=== PATIENT | female | born 1935 | race Caucasian/White ===

== ENCOUNTER 2025-03-19 22:47 | Inpatient (IN) | payer MEDICARE, MEDICAID ==
[~2025-03-19] VITALS: Ht 157.5 cm; Wt 60.4 kg
[2025-03-19 23:13] VITALS: O2SAT 98
[2025-03-20 00:26] LABS: BASOPHILS % 0.4 % (0.0-2.0); EOSINOPHILS % 0.3 % (0.0-5.0); HEMATOCRIT. 34.5 % (36.0-48.0); HEMOGLOBIN. 11.6 g/dL (12.0-16.0); LYMPHOCYTES % 21.4 % (20.0-50.0); MEAN PLATELET VOLUME 7.5 fl (7.4-10.4); MONOCYTES % 4.9 % (2.0-8.0); NEUTROPHILS % 73.0 % (40.0-76.0); PLATELET 284 x1000/uL (130-400); RED BLOOD CELL COUNT 3.89 mill/uL (4.2-5.4); RED CELL DISTRIBUTION WIDTH 13.8 % (11.6-14.6)
[2025-03-20] MEDS: DEXT 5%/0.45% NACL 1000ML 1,000 ML IV ONE (00:37)
[2025-03-20 00:42] LABS: CREATININE 1.6 mg/dL (0.6-1.0); UREA NITROGEN BLOOD 37 mg/dL (9-23)
[2025-03-20 00:43] LABS: TROPONIN I HIGH SENSITIVITY 5 ng/L (3.0-34)
[2025-03-20] MEDS ORDERED: MAGNESIUM/ALUMINUM HYDROXIDE/SIMETHICONE 30ML UDC PO PRN (01:15)
[2025-03-20] MEDS ORDERED: ACETAMINOPHEN 325MG TABLET PO PRN (01:15)
[2025-03-20] MEDS ORDERED: DEXTROSE 50% WATER 50ML SYRINGE IV PRN (01:15)
[2025-03-20] MEDS ORDERED: ZOLPIDEM TARTRATE 5MG TABLET PO PRN (01:15)
[2025-03-20] MEDS ORDERED: ONDANSETRON HCL 4MG/2ML INJ IV PRN (01:15)
[2025-03-20] MEDS ORDERED: HYDROCODONE/ACETAMINOPHEN 5/325MG TABLET PO PRN (01:15)
[2025-03-20] MEDS ORDERED: NALOXONE HCL 0.4MG/ML VIAL IV PRN (01:30)
[2025-03-20] MEDS: LABETALOL 5MG/ML 4ML INJ IV NR (01:45)
[2025-03-20 02:24] LABS: CLARITY URINE CLEAR (CLEAR); COLOR URINE YELLOW (YELLOW); GLUCOSE URINE TRACE (NEGATIVE); KETONES URINE NEGATIVE (NEGATIVE); LEUKOCYTE ESTERASE URINE NEGATIVE (NEGATIVE); NITRITE URINE NEGATIVE (NEGATIVE); OCCULT BLOOD URINE NEGATIVE (NEGATIVE); PH URINE 7.0 (4.5-8.0); PROTEIN URINE 2+ (NEGATIVE); SPECIFIC GRAVITY URINE 1.008 (1.005-1.030); UROBILINOGEN URINE 0.2 E.U./dL (0.2-1.0)
[2025-03-20 03:17] LABS: *AMPHETAMINES SCREEN URINE NEGATIVE (NEGATIVE); *BENZODIAZEPINES SCREEN URINE NEGATIVE (NEGATIVE)
[2025-03-20 03:18] LABS: *BARBITURATES SCREEN URINE NEGATIVE (NEGATIVE); *COCAINE SCREEN URINE NEGATIVE (NEGATIVE); CANNABINOID URINE SCREEN NEGATIVE (NEGATIVE); ECSTASY MDMA SCREEN URINE NEGATIVE (NEGATIVE); METHADONE URINE SCREEN NEGATIVE (NEGATIVE); OPIATES URINE SCREEN NEGATIVE (NEGATIVE); PHENCYCLIDINE URINE SCREEN NEGATIVE (NEGATIVE)
[2025-03-20] MEDS: DEXT 5%/0.45% NACL 1000ML 1,000 ML IV SCH (03:30)
[2025-03-20] MEDS: CLONIDINE 0.1MG TABLET PO PRN (03:33)
[2025-03-20 04:08] VITALS: BP 203/67; PULSE 69; RESP 17; RESP 19; TEMP 36.7; O2SAT 96
[2025-03-20 04:30] VITALS: BP 203/67; PULSE 69; RESP 17; TEMP 36.696
[2025-03-20 04:55] LABS: BACTERIA URINE NONE SEEN; RBC URINE NONE SEEN /hpf (0-2); SQUAMOUS EPITHELIAL CELL URINE NONE SEEN /lpf (RARE/1+); WBC URINE 0-2 /hpf (0-2)
[2025-03-20 05:09] LABS: TROPONIN I HIGH SENSITIVITY 5 ng/L (3.0-34)
[2025-03-20] MEDS: BLOOD SUGAR DIAGNOSTIC STRIP TEST SCH (05:59)
[2025-03-20] MEDS: INSULIN LISPRO 100 UNITS/ML SUBCUT SCH (07:50)
[2025-03-20 08:00] VITALS: BP 145/55; PULSE 77; RESP 16; TEMP 36.3; O2SAT 99
[2025-03-20] MEDS: PANTOPRAZOLE SODIUM 40 MG/VIAL IV SCH (09:50)
[2025-03-20] MEDS: ENOXAPARIN 40MG/0.4ML SYR SUBCUT SCH (09:51)
[2025-03-20 12:00] VITALS: BP 162/59; PULSE 82; RESP 17; TEMP 36.3; O2SAT 98
[2025-03-20 16:00] VITALS: BP 132/54; PULSE 64; RESP 16; TEMP 36.3; O2SAT 98
[2025-03-20 20:00] VITALS: BP 154/66; PULSE 75; RESP 17; TEMP 36.4; O2SAT 98
[2025-03-21] VITALS: BP 113/59; PULSE 67; RESP 19; TEMP 36.2; O2SAT 98
[2025-03-21 04:00] VITALS: BP 174/62; PULSE 70; RESP 19; TEMP 36.2; O2SAT 95
[2025-03-21 06:32] LABS: BASOPHILS % 0.4 % (0.0-2.0); EOSINOPHILS % 2.5 % (0.0-5.0); HEMATOCRIT. 31.2 % (36.0-48.0); HEMOGLOBIN. 10.5 g/dL (12.0-16.0); LYMPHOCYTES % 36.4 % (20.0-50.0); MEAN PLATELET VOLUME 7.7 fl (7.4-10.4); MONOCYTES % 7.3 % (2.0-8.0); NEUTROPHILS % 53.4 % (40.0-76.0); PLATELET 252 x1000/uL (130-400); RED BLOOD CELL COUNT 3.50 mill/uL (4.2-5.4); RED CELL DISTRIBUTION WIDTH 13.8 % (11.6-14.6)
[2025-03-21 06:43] LABS: CREATININE 1.6 mg/dL (0.6-1.0); UREA NITROGEN BLOOD 32.0 mg/dL (9-23)
[2025-03-21 08:00] VITALS: BP 136/52; PULSE 85; RESP 18; TEMP 36.1; O2SAT 98
[2025-03-21] MEDS: AMLODIPINE 5MG TABLET PO SCH (08:56)
[2025-03-21] MEDS: ENOXAPARIN 30MG/0.3ML SYR SUBCUT SCH (08:56)
[2025-03-21] MEDS: LISINOPRIL 10MG TABLET PO SCH (08:57)
[2025-03-21 12:00] VITALS: BP 137/47; PULSE 68; RESP 18; TEMP 36.4; O2SAT 99
[2025-03-21 16:00] VITALS: BP 120/53; PULSE 70; RESP 20; TEMP 36.3; O2SAT 97
[2025-03-21 20:00] VITALS: BP 124/52; PULSE 72; RESP 19; TEMP 36.4; O2SAT 97
[2025-03-22] VITALS (7 sets, daily range): BP systolic 133–187; BP diastolic 55–72; PULSE 74–88; RESP 16–20; TEMP 36.2–36.6; O2SAT 97–99
[2025-03-22 09:11] LABS: BASOPHILS % 0.6 % (0.0-2.0); EOSINOPHILS % 1.9 % (0.0-5.0); HEMATOCRIT. 33.5 % (36.0-48.0); HEMOGLOBIN. 11.4 g/dL (12.0-16.0); LYMPHOCYTES % 29.8 % (20.0-50.0); MEAN PLATELET VOLUME 7.7 fl (7.4-10.4); MONOCYTES % 6.6 % (2.0-8.0); NEUTROPHILS % 61.1 % (40.0-76.0); PLATELET 285 x1000/uL (130-400); RED BLOOD CELL COUNT 3.78 mill/uL (4.2-5.4); RED CELL DISTRIBUTION WIDTH 13.6 % (11.6-14.6)
[2025-03-22 09:43] LABS: CREATININE 1.6 mg/dL (0.6-1.0); UREA NITROGEN BLOOD 32.0 mg/dL (9-23)
[2025-03-22] MEDS ORDERED: AMLO5TAB88 PO (16:47)
== END 2025-03-22 19:10 | disposition home health service (06) | DRG 637 ==
LOC: ER 22:47 → 6WST 03-20 01:07 → EDBEDREQ 03-20 01:19 → EDBEDREQTM 03-20 01:19 → ENRESERV 03-20 03:11
PROVIDERS: ADMIT Internal Medicine; ATTEND Internal Medicine
DX: E11.649 Type 2 diabetes mellitus with hypoglycemia without coma (principal); G92.8 Other toxic encephalopathy; I10 Essential (primary) hypertension; N17.9 Acute kidney failure, unspecified; I16.0 Hypertensive urgency; E78.5 Hyperlipidemia, unspecified; Z79.899 Other long term (current) drug therapy
CPT/HCPCS: 36415; 71045; 80048; 80305; 81003; 82962; 84443; 84484; 85025; 93970; 97162; 99285; J1650; J1815; J2470; J3490

== ENCOUNTER 2025-03-23 21:53 | Inpatient (IN) | payer MEDICARE, OTHER ==
[~2025-03-23] VITALS: Ht 167.6 cm; Wt 61.2 kg
[~2025-03-23 21:53] MED LIST: AMLO5TAB88 PO
[2025-03-23 22:19] VITALS: O2SAT 98
[2025-03-23] MEDS: SODIUM CHLORIDE 0.9% 1,000 ML IV ONE (23:00)
[2025-03-23] MEDS: MORPHINE SULFATE 4 MG/ML INJ (FOR IV/IM USE) IV ONE (23:00)
[2025-03-23] MEDS: ONDANSETRON HCL 4MG/2ML INJ IV ONE (23:00)
[2025-03-23 23:47] LABS: HEMATOCRIT. 33.2 % (36.0-48.0); HEMOGLOBIN. 11.4 g/dL (12.0-16.0); MEAN PLATELET VOLUME 7.4 fl (7.4-10.4); PLATELET 272 x1000/uL (130-400); RED BLOOD CELL COUNT 3.74 mill/uL (4.2-5.4); RED CELL DISTRIBUTION WIDTH 13.5 % (11.6-14.6)
[2025-03-23 23:58] LABS: INR 1.0
[2025-03-24 00:02] LABS: CREATININE 1.9 mg/dL (0.6-1.0); UREA NITROGEN BLOOD 41 mg/dL (9-23)
[2025-03-24 00:04] LABS: ASPARTATE AMINOTRANSFERASE 492 IU/L (<34); BILIRUBIN DIRECT 1.1 mg/dL (<=3.0); BILIRUBIN TOTAL 1.7 mg/dL (0.1-1.0); PROTEIN TOTAL 7.4 g/dL (6.0-8.3); TROPONIN I HIGH SENSITIVITY 9 ng/L (3.0-34)
[2025-03-24] MEDS: CEFTRIAXONE 1GM/50ML 50 ML IV ONE (03:46)
[2025-03-24 06:03] LABS: BAND% 13.0 % (1.0-6.0); LYMPHOCYTES % MANUAL 2.0 % (20.0-60.0); NEUTROPHILS % MANUAL 85.0 % (45.0-75.0); PLATELET ESTIMATE NORMAL
[2025-03-24] MEDS ORDERED: DEXTROSE 50% WATER 50ML SYRINGE IV PRN (11:30)
[2025-03-24 12:00] VITALS: BP 136/50; PULSE 100; RESP 18; TEMP 37.2; O2SAT 100
[2025-03-24] MEDS: BLOOD SUGAR DIAGNOSTIC STRIP TEST SCH (12:40)
[2025-03-24] MEDS: INSULIN LISPRO 100 UNITS/ML SUBCUT SCH (13:10)
[2025-03-24] MEDS: HYDROCODONE/ACETAMINOPHEN 5/325MG TABLET PO SCH (15:38)
[2025-03-24 16:00] VITALS: BP 130/74; PULSE 100; RESP 18; TEMP 37.5; O2SAT 96
[2025-03-24 16:55] VITALS: BP 147/56; PULSE 98; RESP 20; TEMP 36.7516
[2025-03-24 20:00] VITALS: BP 96/36; PULSE 95; RESP 18; TEMP 36.3; O2SAT 95
[2025-03-25] VITALS: BP 111/40; PULSE 104; RESP 18; TEMP 36.5; O2SAT 95
[2025-03-25 04:00] VITALS: BP 120/38; PULSE 116; RESP 18; TEMP 36.6; O2SAT 95
[2025-03-25 06:36] LABS: BASOPHILS % 0.1 % (0.0-2.0); EOSINOPHILS % 0.1 % (0.0-5.0); HEMATOCRIT. 29.2 % (36.0-48.0); HEMOGLOBIN. 9.9 g/dL (12.0-16.0); LYMPHOCYTES % 7.1 % (20.0-50.0); MEAN PLATELET VOLUME 8.1 fl (7.4-10.4); MONOCYTES % 3.5 % (2.0-8.0); NEUTROPHILS % 89.2 % (40.0-76.0); PLATELET 201 x1000/uL (130-400); RED BLOOD CELL COUNT 3.29 mill/uL (4.2-5.4); RED CELL DISTRIBUTION WIDTH 13.8 % (11.6-14.6)
[2025-03-25 06:44] LABS: CREATININE 2.2 mg/dL (0.6-1.0); UREA NITROGEN BLOOD 49.0 mg/dL (9-23)
[2025-03-25 08:00] VITALS: BP 105/46; PULSE 104; RESP 20; TEMP 36.7; O2SAT 98
[2025-03-25 12:00] VITALS: BP 120/43; PULSE 103; RESP 18; TEMP 37; O2SAT 99
[2025-03-25 15:15] LABS: CLARITY URINE CLEAR (CLEAR); COLOR URINE YELLOW (YELLOW); GLUCOSE URINE NEGATIVE (NEGATIVE); KETONES URINE NEGATIVE (NEGATIVE); LEUKOCYTE ESTERASE URINE NEGATIVE (NEGATIVE); NITRITE URINE NEGATIVE (NEGATIVE); OCCULT BLOOD URINE 1+ (NEGATIVE); PH URINE 6.0 (4.5-8.0); PROTEIN URINE 1+ (NEGATIVE); SPECIFIC GRAVITY URINE 1.011 (1.005-1.030); UROBILINOGEN URINE 0.2 E.U./dL (0.2-1.0)
[2025-03-25 15:32] LABS: RBC URINE 0-2 /hpf (0-2); SQUAMOUS EPITHELIAL CELL URINE FEW /lpf (RARE/1+); YEAST URINE NONE SEEN
[2025-03-25 15:33] LABS: BACTERIA URINE 1+
[2025-03-25 16:00] VITALS: BP 146/50; PULSE 103; RESP 18; TEMP 36.8; O2SAT 99
[2025-03-25 20:00] VITALS: BP 146/49; PULSE 111; RESP 18; TEMP 37; O2SAT 98
[2025-03-26] VITALS: BP 161/54; PULSE 108; RESP 18; TEMP 37.1; O2SAT 96
[2025-03-26] MEDS: CEFTRIAXONE 1GM/50ML 50 ML IV SCH (01:33)
[2025-03-26 04:00] VITALS: BP 163/63; PULSE 104; RESP 18; TEMP 36.6; O2SAT 97
[2025-03-26 07:12] LABS: BASOPHILS % 0.2 % (0.0-2.0); EOSINOPHILS % 0.4 % (0.0-5.0); HEMATOCRIT. 29.5 % (36.0-48.0); HEMOGLOBIN. 10.1 g/dL (12.0-16.0); LYMPHOCYTES % 12.3 % (20.0-50.0); MEAN PLATELET VOLUME 8.5 fl (7.4-10.4); MONOCYTES % 3.6 % (2.0-8.0); NEUTROPHILS % 83.5 % (40.0-76.0); PLATELET 204 x1000/uL (130-400); RED BLOOD CELL COUNT 3.35 mill/uL (4.2-5.4); RED CELL DISTRIBUTION WIDTH 13.6 % (11.6-14.6)
[2025-03-26 07:28] LABS: CREATININE 1.6 mg/dL (0.6-1.0); UREA NITROGEN BLOOD 38.0 mg/dL (9-23)
[2025-03-26 08:00] VITALS: BP 155/62; PULSE 98; RESP 20; TEMP 36.8; O2SAT 98
[2025-03-26] MEDS: SODIUM CHLORIDE 0.9% 1,000 ML IV SCH (08:30)
[2025-03-26 12:00] VITALS: BP 140/50; PULSE 97; RESP 18; RESP 20; TEMP 36.1; TEMP 36.4; O2SAT 97; O2SAT 98
[2025-03-26] MEDS: METRONIDAZOLE 500 MG PREMIX 100 ML IV SCH (12:50)
[2025-03-26 16:00] VITALS: BP 139/58; PULSE 98; RESP 2; TEMP 36.5; O2SAT 99
[2025-03-26 20:00] VITALS: BP 135/69; PULSE 98; RESP 14; TEMP 36.1; O2SAT 97
[2025-03-27 00:06] VITALS: BP 176/56; PULSE 101; RESP 14; TEMP 36.6; O2SAT 97
[2025-03-27] MEDS: CLONIDINE 0.1MG TABLET PO PRN (00:49)
[2025-03-27 04:23] VITALS: BP 143/56; PULSE 82; RESP 12; TEMP 36.4; O2SAT 95
[2025-03-27 07:59] LABS: BASOPHILS % 0.2 % (0.0-2.0); EOSINOPHILS % 1.9 % (0.0-5.0); HEMATOCRIT. 28.6 % (36.0-48.0); HEMOGLOBIN. 9.9 g/dL (12.0-16.0); LYMPHOCYTES % 17.4 % (20.0-50.0); MEAN PLATELET VOLUME 8.1 fl (7.4-10.4); MONOCYTES % 8.7 % (2.0-8.0); NEUTROPHILS % 71.8 % (40.0-76.0); PLATELET 223 x1000/uL (130-400); RED BLOOD CELL COUNT 3.28 mill/uL (4.2-5.4); RED CELL DISTRIBUTION WIDTH 13.6 % (11.6-14.6)
[2025-03-27 08:00] VITALS: BP 124/61; PULSE 91; RESP 16; TEMP 36.5; O2SAT 98
[2025-03-27 08:07] LABS: CREATININE 1.1 mg/dL (0.6-1.0); UREA NITROGEN BLOOD 27.0 mg/dL (9-23)
[2025-03-27] MEDS: LOSARTAN 50 MG TABLET PO SCH (08:38)
[2025-03-27] MEDS: AMLODIPINE 10MG TABLET PO SCH (08:40)
[2025-03-27] MEDS: MEROPENEM 1G/100ML 100 ML IV SCH (13:03)
[2025-03-27] MEDS ORDERED: LIDOCAINE HCL 1% 10 MG/ML 10ML VIAL ONE (14:45)
[2025-03-27 16:00] VITALS: BP 134/62; PULSE 98; RESP 18; TEMP 36.8; O2SAT 99
[2025-03-27 20:10] VITALS: BP 143/59; PULSE 92; RESP 17; TEMP 36.6; O2SAT 97
[2025-03-27 23:56] VITALS: BP 177/58; PULSE 91; RESP 17; TEMP 36.6; O2SAT 98
[2025-03-28] MEDS: ZOLPIDEM TARTRATE 5MG TABLET PO PRN (00:54)
[2025-03-28 04:00] VITALS: BP 183/69; PULSE 96; RESP 17; TEMP 36.4; O2SAT 98
[2025-03-28 07:46] VITALS: BP 120/45; PULSE 89; RESP 18; TEMP 36.4; O2SAT 97
[2025-03-28 11:54] VITALS: BP 140/47; PULSE 82; RESP 20; TEMP 36.7; O2SAT 99
[2025-03-28 16:10] VITALS: BP 146/32; PULSE 89; RESP 20; TEMP 36.3; O2SAT 97
[2025-03-28 20:15] VITALS: BP 156/51; PULSE 85; RESP 19; TEMP 36.2; O2SAT 100
[2025-03-28 23:47] VITALS: BP 109/55; PULSE 65; RESP 18; TEMP 36.8; O2SAT 97
[2025-03-29 04:00] VITALS: BP 152/57; PULSE 96; RESP 18; TEMP 36.6; O2SAT 97
[2025-03-29 04:23] VITALS: BP 152/57; PULSE 96; RESP 18; TEMP 36.6; O2SAT 97
[2025-03-29 12:00] VITALS: BP 140/48; PULSE 93; RESP 18; TEMP 36.6; O2SAT 100
[2025-03-29 16:00] VITALS: BP 141/63; PULSE 100; RESP 20; TEMP 36.3; O2SAT 100
[2025-03-29 16:05] VITALS: BP 140/48; PULSE 93; RESP 18; TEMP 97.1
[2025-03-29] MEDS ORDERED: INSULIN GLARGINE 100 UNITS/ML SUBCUT SCH (22:00)
== END 2025-03-29 18:20 | disposition home health service (06) | DRG 872 ==
LOC: ER 21:53 → 7WST 03-24 03:16 → EDBEDREQDT 03-24 03:21 → EDBEDREQ 03-24 03:21 → EDBEDREQTM 03-24 03:21 → ENRESERV 03-24 06:58
PROVIDERS: ADMIT Internal Medicine; ATTEND Internal Medicine
PROC: 02HV33Z Insertion of Infusion Device into Superior Vena Cava, Percutaneous Approach (ICD-10-PCS; principal; 2025-03-27)
PROC: B5181ZA Fluoroscopy of Superior Vena Cava using Low Osmolar Contrast, Guidance (ICD-10-PCS; 2025-03-27)
PROC: B548ZZA Ultrasonography of Superior Vena Cava, Guidance (ICD-10-PCS; 2025-03-27)
DX: A41.51 Sepsis due to Escherichia coli [E. coli] (principal); K80.10 Calculus of gallbladder with chronic cholecystitis without obstruction; N17.9 Acute kidney failure, unspecified; Z16.12 Extended spectrum beta lactamase (ESBL) resistance; I10 Essential (primary) hypertension; E78.00 Pure hypercholesterolemia, unspecified; K82.8 Other specified diseases of gallbladder; E80.6 Other disorders of bilirubin metabolism; Z79.899 Other long term (current) drug therapy
CPT/HCPCS: 36415; 71045; 74176; 76705; 77001; 80048; 80076; 81003; 82962; 83036; 83880; 84145; 84484; 85025; 87077; 87186; 93005; 96361; 96365; 96375; 99285; C1725; J0696; J1815; J2003; J2185; J2270; J2405; J3490; J7030